=== PATIENT | male | born 1980 | race Caucasian/White ===

== ENCOUNTER 2020-12-13 09:39 | Emergency (ER) | payer OTHER ==
--- OUTSIDE RECORDS SUMMARY | 2020-12-13 09:42 | XMS REPORT | Continuity of Care Document ---
:1980 Author Organization [facility] t Address [address] [place] [address] Dr. Li [address] [place] [id number] Care Team Providers Name Role Phone Unavailable Unavailable Unavailable Problems This patient has no known problems. Allergies, Adverse Reactions, Alerts This patient has no known allergies or adverse reactions. Medications This patient has no known medications. Procedures This patient has no known procedures. Results This patient has no known results.
[2020-12-13] MEDS ORDERED: HYDROCODONE/APAP 7.5/325 MG TAB ONE (10:06)
--- NOTE | 2020-12-13 10:42 | RAD REPORT ---
EXAM DESCRIPTION: RAD - Hip Left 2 View - 12/13/2020 10:34 am CLINICAL HISTORY: PAIN COMPARISON: No comparisons FINDINGS: Subcapital fracture is seen of the proximal left femur with varus angulation. No dislocati on evident.
[2020-12-13] MEDS ORDERED: MORPHINE 4 MG/ML SYR ONE ×4 (11:06→17:37)
[2020-12-13] MEDS ORDERED: ONDANSETRON 4 MG/2 ML VIAL ONE ×2 (11:06→15:11)
[2020-12-13 11:07] LABS: Absolute Lymphocytes (CBC) 0.9 K/uL (0.7-4.9); Basophils % 0.5 % (0-1.3); Hematocrit 31.9 % (39.6-49.0); Lymphocytes % 8.6 % (15.3-44.8); MPV 9.2 fL (7.6-11.3); RBC Red Blood Cell Count 3.46 M/uL (4.33-5.43)
[2020-12-13 11:23] LABS: Protime INR 1.03
[2020-12-13 11:37] LABS: Thyroid Stimulating Hormone 99.1 uIU/mL (0.360-3.740)
--- NOTE | 2020-12-13 13:47 | RAD REPORT ---
EXAM DESCRIPTION: CT - Head Brain Wo Cont - 12/13/2020 1:24 pm CLINICAL HISTORY: fall, head injury, headache COMPARISON: Head Brain Wo Cont dated 05/27/2016 TECHNIQUE: Axial 5 mm thick images of the head were obtained without IV contrast. All CT scans are performed using dose optimization technique as appropriate and may include automated exposure control or mA/KV adjustment according to patient size. FINDINGS: No intracranial hemorrhage, mass, edema or shift of mid-line structures. No acute infarcti on changes seen. No abnormal extra-axial fluid collections. Ventricles are normal. Mastoid air cells and visualized portions of the paranasal sinuses are clear. No acute bony findings. Significant change from comparison. IMPRESSION: Negative non-contrast CT head examination for acute or significant finding.
[2020-12-13 14:27] LABS: Potassium 4.8 mmol/L (3.5-5.1)
[2020-12-13] MEDS ORDERED: NA CHLORIDE 0.9% 1,000 ML ONE (14:54)
--- NOTE | 2020-12-13 15:42 | EDPHYS ---
Physician Documentation [facility] Name: Mark Cash Age: 40 yrs Sex: Male : 1980 Arrival Date: 12/13/2020 Time: 09:40 Bed 2 Private MD: ED Physician Karthik Jack HPI: 12/13 09:48 This 40 yrs old Male presents to ER via EMS with complaints of Fall Injury. kb 09:48 Details of fall: The patient fell from an upright position, while walking. Onset: The kb symptoms/episode began/occurred last night. Associated injuries: The patient sustained left hip, decreased range of motion, painful injury. Severity of symptoms: At their worst the symptoms were moderate, in the emergency department the symptoms are unchanged. The patient has not experienced similar symptoms in the past. The patient has not recently seen a physician. Pt reports he tripped last night when walking to his car and landed on left hip. Reports he was able to make it into his car and home, then used a walker to get inside. Reports pain has progressively gotten worse.. Historical: - Allergies: 09:42 No Known Allergies; sv - PMHx: 09:42 Diabetes - IDDM; sv - PSHx: 09:42 dental sx; sv - Immunization history:: Adult Immunizations up to date. - Social history:: Smoking status: Patient denies any tobacco usage or history of. ROS: 09:46 Constitutional: Negative for fever, chills, and weight loss, Respiratory: Negative for kb shortness of breath, cough, wheezing, and pleuritic chest pain, Abdomen/GI: Negative for abdominal pain, nausea, vomiting, diarrhea, and constipation, Skin: Negative for injury, rash, and discoloration, Neuro: Negative for headache, weakness, numbness, tingling, and seizure. 09:46 MS/extremity: Positive for decreased range of motion, pain, tenderness, of the left hip. Exam: 09:46 Constitutional: This is a well developed, well nourished patient who is awake, alert, kb and in no acute distress. Head/Face: Normocephalic, atraumatic. Cardiovascular: Regular rate and rhythm with a normal S1 and S2. No gallops, murmurs, or rubs. No pulse deficits. Respiratory: Respirations even and unlabored. No increased work of breathing, no retractions or nasal flaring. Neuro: Awake and alert, GCS 15, oriented to person, place, time, and situation. Moves all extremities. Normal gait. 09:46 Musculoskeletal/extremity: Extremities: grossly normal except: noted in the left hip: decreased ROM, pain, tenderness, ROM: limited active range of motion due to pain, in the left hip, Circulation is intact in all extremities. Sensation intact. Weight bearing: is unable to bear weight. 09:46 Skin: injury, abrasion(s), very small abrasion noted, of the left zamarripa. Vital Signs: 09:41 BP 102 / 73; Pulse 89; Resp 16; Temp 98.1; Pulse Ox 98% ; sv 11:15 BP 138 / 97; Pulse 82; Resp 16; Pulse Ox 95% ; sv 12:00 BP 124 / 87; Pulse 82; Resp 16; Pulse Ox 96% ; sv 12:45 BP 119 / 85; Pulse 75; Resp 18; Pulse Ox 96% ; sv 13:30 BP 114 / 89; Pulse 80; Resp 18; Pulse Ox 98% ; sv 14:15 BP 112 / 82; Pulse 76; Resp 16; Pulse Ox 96% ; sv 15:00 BP 110 / 77; Pulse 79; Resp 16; Pulse Ox 98% ; sv 15:45 BP 110 / 76; Pulse 69; Resp 16; Pulse Ox 97% ; sv 17:00 BP 116 / 74; Pulse 66; Resp 15; Pulse Ox 97% on R/A; Pain 9/10; hb MDM: 09:43 Patient medically screened. kb 09:46 Data reviewed: vital signs, nurses notes. Data interpreted: Pulse oximetry: on room air kb is 98 %. Interpretation: normal. 10:49 Counseling: I had a detailed discussion with the patient and/or guardian regarding: the kb historical points, exam findings, and any diagnostic results supporting the discharge/admit diagnosis, radiology results, the need for further work-up and treatment in the hospital. Physician consultation: Reymundo Lopez MD was contacted at 10:49, regarding consult, patient's condition. 12:30 Physician consultation: Reymundo Lopez MD after a discussion of the case, a kb recommendation for transfer for higher level of care is made, in the emergency department to see patient at 12:15. 13:07 ED course: [facility] wants pt to have a CT of the head to make sure kb there isn't something else going on since pt reported balance issues. Pt reports he has had balance issues for years. Nothing new recently. 14:18 ED course: Awaiting [facility] callback. Beds available at [facility] location. 14:31 ED course: dr murrieta, ortho at [facility], accepts pt for consult. Wants admitted kb to hospitalist. 15:40 ED course: Dr Chacon, hospitalist at [facility], accepts pt for transfer. kb Awaiting bed assignment. 12/13 10:37 Order name: CBC with Diff 12/13 10:37 Order name: Basic Metabolic Panel 12/13 10:37 Order name: Protime (+inr) 12/13 10:37 Order name: Ptt, Activated; Complete Time: 11:28 kb 12/13 10:37 Order name: Type And Screen; Complete Time: 13:23 kb 12/13 10:37 Order name: CBC with Automated Diff; Complete Time: 11:17 EDAZ 12/13 10:37 Order name: Basic Metabolic Panel; Complete Time: 14:29 EDAZ 12/13 10:37 Order name: Protime (+INR); Complete Time: 11:28 EDAZ 12/13 10:42 Order name: COVID-19 : Document "Date of Symptom Onset" if Symptomatic. 12/13 10:43 Order name: TSH; Complete Time: 11:54 kb 12/13 11:38 Order name: T4 Free; Complete Time: 11:54 EDAZ 12/13 12:24 Order name: SARS-COV-2 RT PCR; Complete Time: 12:25 EDAZ 12/13 17:37 Order name: ABO/RH no charge EDAZ 12/13 09:44 Order name: Hip Left 2 View XRAY; Complete Time: 10:42 kb 12/13 10:37 Order name: IV Start; Complete Time: 10:59 kb 12/13 13:07 Order name: CT Head Brain wo Cont; Complete Time: 13:48 kb Administered Medications: 09:51 Drug: [place] (HYDROcodone-acetaminophen) (7.5 mg-325 mg) 1 tabs {Note: rass1.} Route: PO;sv 10:40 Follow up: Response: No adverse reaction hb 10:50 Drug: Zofran (Ondansetron) 4 mg Route: IVP; Site: right forearm; hb 11:30 Follow up: Response: No adverse reaction sv 10:58 Drug: morphine 4 mg Route: IVP; Site: right forearm; hb 11:30 Follow up: Response: No adverse reaction; Pain is decreased; RASS: Alert and Calm (0) sv 12:50 Drug: morphine 4 mg Route: IVP; Site: right forearm; sv 13:30 Follow up: Response: No adverse reaction; Pain is decreased; RASS: Alert and Calm (0) sv 14:43 Drug: NS 0.9% 1000 ml Route: IV; Rate: 1000 ml; Site: right forearm; ss 15:50 Follow up: Response: No adverse reaction; IV Status: Completed infusion; IV Intake: sv 1000ml 14:55 Drug: morphine 4 mg Route: IVP; Site: right forearm; hb 15:30 Follow up: Response: No adverse reaction; Pain is decreased; RASS: Alert and Calm (0) sv 14:55 Drug: Zofran (Ondansetron) 4 mg Route: IVP; Site: right forearm; hb 15:30 Follow up: Response: No adverse reaction sv 17:28 Drug: morphine 4 mg Route: IVP; Site: right forearm; hb 17:35 Follow up: Response: No adverse reaction; Medication administered at discharge.; RASS: sv Restless (+1) Disposition: 12/14 08:00 Co-signature as Attending Physician, Karthik Jack MD I agree with the assessment and kdr plan of care. Disposition: 12/13/20 15:42 Transfer ordered to Other Acute Care Facility. Diagnosis are Subcapital Fracture of left femur, Hypothyroidism, unspecified, Acute kidney failure. - Reason for transfer: Higher level of care. - Accepting physician is Dr Chacon. - Condition is Stable. - Problem is new. - Symptoms are unchanged. Signatures: Dispatcher [employer] EDAZ Ann Balbuena FNP-C FNP-Jasmin Nguyen RN Karthik Mathews MD MD kdr Smirch, Shelby, RN RN Milagro Sen RN RN Corrections: (The following items were deleted from the chart) 12/13 11:38 10:42 CORONAVIRUS ordered. EDAZ EDAZ 17:37 15:42 12/13/2020 15:42 Transfer ordered to Other Acute Care Facility. Diagnosis is hb Subcapital Fracture of left femur; Hypothyroidism, unspecified; Acute kidney failure. Reason for transfer: Higher level of care. Accepting physician is Dr Chacon. Condition is Stable. Problem is new. Symptoms are unchanged. kb
--- NOTE | 2020-12-13 15:42 | ER ---
Nurse's Notes [facility] Name: Mark Cash Age: 40 yrs Sex: Male : 1980 Arrival Date: 12/13/2020 Time: 09:40 Bed 2 Private MD: Diagnosis: Subcapital Fracture of left femur;Hypothyroidism, unspecified;Acute kidney failure Presentation: 12/13 09:41 Chief complaint: EMS states: reports falling yesterday and has been having left hip/leg sv pain since. Reports having balance issues for awhile which is causing him to fall. Pt is unable to bear weight. Coronavirus screen: Client denies travel out of the [place] in the last 14 days. At this time, the client does not indicate any symptoms associated with coronavirus-19. Ebola Screen: No symptoms or risks identified at this time. Initial Sepsis Screen: Does the patient meet any 2 criteria? No. Patient's initial sepsis screen is negative. Does the patient have a suspected source of infection? No. Patient's initial sepsis screen is negative. Risk Assessment: Do you want to hurt yourself or someone else? Patient reports no desire to harm self or others. Onset of symptoms was December 12, 2000. 09:41 Method Of Arrival: EMS: [facility] sv 09:41 Acuity: MAILE 3 sv Triage Assessment: 09:41 General: Appears in no apparent distress. uncomfortable, slender, well developed, sv Behavior is calm, cooperative, appropriate for age. Pain: Complains of pain in left leg and left hip Pain currently is 10 out of 10 on a pain scale. Neuro: Level of Consciousness is awake, alert, obeys commands, Oriented to person, place, time, situation. Respiratory: Airway is patent Respiratory effort is even, unlabored, Respiratory pattern is regular, symmetrical. Derm: Skin is pale. Historical: - Allergies: 09:42 No Known Allergies; sv - PMHx: 09:42 Diabetes - IDDM; sv - PSHx: 09:42 dental sx; sv - Immunization history:: Adult Immunizations up to date. - Social history:: Smoking status: Patient denies any tobacco usage or history of. Screenin:43 Abuse screen: Denies threats or abuse. Denies injuries from another. Nutritional sv screening: No deficits noted. Tuberculosis screening: No symptoms or risk factors identified. 11:01 Fall Risk None identified. hb Assessment: 09:45 General: Appears in no apparent distress. uncomfortable, Behavior is calm, cooperative. hb Pain: Pain currently is 10 out of 10 on a pain scale. Neuro: Level of Consciousness is awake, alert, obeys commands, Oriented to person, place, time, situation. Cardiovascular: Patient's skin is warm and dry. Respiratory: Respiratory effort is even, unlabored, Respiratory pattern is regular, symmetrical. GI: No signs and/or symptoms were reported involving the gastrointestinal system. : No signs and/or symptoms were reported regarding the genitourinary system. EENT: No signs and/or symptoms were reported regarding the EENT system. Derm: Skin is pink, warm \\T\\ dry. Musculoskeletal: Reports left hip pain. 10:50 Reassessment: Patient appears in no apparent distress at this time. No changes from sv previously documented assessment. Patient and/or family updated on plan of care and expected duration. Pain level reassessed. Patient is alert, oriented x 3, equal unlabored respirations, skin warm/dry/pink. 11:45 Reassessment: Patient appears in no apparent distress at this time. Patient and/or hb family updated on plan of care and expected duration. Pain level reassessed. Patient is alert, oriented x 3, equal unlabored respirations, skin warm/dry/pink. 13:45 Reassessment: Patient appears in no apparent distress at this time. Patient and/or hb family updated on plan of care and expected duration. Pain level reassessed. Patient is alert, oriented x 3, equal unlabored respirations, skin warm/dry/pink. 14:45 Reassessment: Patient appears in no apparent distress at this time. Patient and/or hb family updated on plan of care and expected duration. Pain level reassessed. Patient is alert, oriented x 3, equal unlabored respirations, skin warm/dry/pink. 15:45 Reassessment: Patient appears in no apparent distress at this time. Patient and/or hb family updated on plan of care and expected duration. Pain level reassessed. Patient is alert, oriented x 3, equal unlabored respirations, skin warm/dry/pink. 16:19 Reassessment: Patient appears in no apparent distress at this time. No changes from hb previously documented assessment. Patient and/or family updated on plan of care and expected duration. Pain level reassessed. Patient is alert, oriented x 3, equal unlabored respirations, skin warm/dry/pink. Awaiting transfer to higher level of care. 17:00 Reassessment: Patient appears in no apparent distress at this time. Patient and/or hb family updated on plan of care and expected duration. Pain level reassessed. Patient is alert, oriented x 3, equal unlabored respirations, skin warm/dry/pink. Vital Signs: 09:41 BP 102 / 73; Pulse 89; Resp 16; Temp 98.1; Pulse Ox 98% ; sv 11:15 BP 138 / 97; Pulse 82; Resp 16; Pulse Ox 95% ; sv 12:00 BP 124 / 87; Pulse 82; Resp 16; Pulse Ox 96% ; sv 12:45 BP 119 / 85; Pulse 75; Resp 18; Pulse Ox 96% ; sv 13:30 BP 114 / 89; Pulse 80; Resp 18; Pulse Ox 98% ; sv 14:15 BP 112 / 82; Pulse 76; Resp 16; Pulse Ox 96% ; sv 15:00 BP 110 / 77; Pulse 79; Resp 16; Pulse Ox 98% ; sv 15:45 BP 110 / 76; Pulse 69; Resp 16; Pulse Ox 97% ; sv 17:00 BP 116 / 74; Pulse 66; Resp 15; Pulse Ox 97% on R/A; Pain 9/10; hb ED Course: 09:40 Patient arrived in ED. sv 09:40 Jasmin Wakefield, RN is Primary Nurse. sv 09:42 Triage completed. sv 09:42 Nurse Practitioner and/or Physician Turning Machine Operator to see patient. sv 09:42 Arm band placed on. sv 09:43 [facility] Balbuena [facility]-C [facility]. kb 09:43 Karthik Jack MD is Attending Physician. kb 09:43 Patient has correct armband on for positive identification. Bed in low position. Call sv light in reach. Side rails up X2. Pulse ox on. NIBP on. Door closed. Head of bed elevated. 09:52 Awaiting for x-ray. sv 10:30 Hip Left 2 View XRAY In Process Unspecified. EDMS 10:35 Patient moved back from radiology. md1 10:50 Inserted saline lock: 20 gauge in right forearm, using aseptic technique. Blood hb collected. 11:04 COVID-19 : Document "Date of Symptom Onset" if Symptomatic. Sent. sv 11:04 Protime (+inr) Sent. sv 11:04 Basic Metabolic Panel Sent. sv 11:04 CBC with Diff Sent. sv 12:30 Transfer initiated with [facility]. em1 13:23 CT Head Brain wo Cont In Process Unspecified. EDMS 13:50 [facility] transfer center contacted to inform them of negative head CT. em1 17:36 No provider procedures requiring assistance completed. Patient transferred, IV remains hb in place. Administered Medications: 09:51 Drug: [place] (HYDROcodone-acetaminophen) (7.5 mg-325 mg) 1 tabs {Note: rass1.} Route: PO;sv 10:40 Follow up: Response: No adverse reaction hb 10:50 Drug: Zofran (Ondansetron) 4 mg Route: IVP; Site: right forearm; hb 11:30 Follow up: Response: No adverse reaction sv 10:58 Drug: morphine 4 mg Route: IVP; Site: right forearm; hb 11:30 Follow up: Response: No adverse reaction; Pain is decreased; RASS: Alert and Calm (0) sv 12:50 Drug: morphine 4 mg Route: IVP; Site: right forearm; sv 13:30 Follow up: Response: No adverse reaction; Pain is decreased; RASS: Alert and Calm (0) sv 14:43 Drug: NS 0.9% 1000 ml Route: IV; Rate: 1000 ml; Site: right forearm; ss 15:50 Follow up: Response: No adverse reaction; IV Status: Completed infusion; IV Intake: sv 1000ml 14:55 Drug: morphine 4 mg Route: IVP; Site: right forearm; hb 15:30 Follow up: Response: No adverse reaction; Pain is decreased; RASS: Alert and Calm (0) sv 14:55 Drug: Zofran (Ondansetron) 4 mg Route: IVP; Site: right forearm; hb 15:30 Follow up: Response: No adverse reaction sv 17:28 Drug: morphine 4 mg Route: IVP; Site: right forearm; hb 17:35 Follow up: Response: No adverse reaction; Medication administered at discharge.; RASS: sv Restless (+1) Intake: 15:50 IV: 1000ml; Total: 1000ml. sv Outcome: 15:42 ER care complete, transfer ordered by . kb 17:36 Transferred by ground EMS Note: [facility] hb 17:36 Condition: stable 17:36 Instructed on the need for transfer, Demonstrated understanding of instructions. 17:37 Patient left the ED. hb Signatures: Dispatcher [employer] EDMS Ann Balbuena, LOLIS BRAND-Jasmin Nguyen RN RN Gideon Hoover em1 Jessi Coats RN RN Milagro Sen RN RN Debi Pascual md1 Corrections: (The following items were deleted from the chart) 09:43 09:41 Pulse 89bpm; Resp 16bpm; Pulse Ox 98%; Temp 98.1F; sv sv 09:43 09:41 Acuity: MAILE 4 sv sv 10:17 09:41 Chief complaint: EMS states: reports falling yesterday and has been having left sv hip/leg pain since. Reports having balance issues for awhile which is causing him to fall. sv
[2020-12-13 17:56] VITALS: TEMP 98.1
[2020-12-13 18:06] VITALS: O2SAT 97
[2020-12-13 18:08] VITALS: BP 116/74
== END 2020-12-13 17:37 ==
LOC: ER 09:39
DX: S72.012A Unspecified intracapsular fracture of left femur, initial encounter for closed fracture (principal); E03.9 Hypothyroidism, unspecified; N17.9 Acute kidney failure, unspecified; W01.0XXA Fall on same level from slipping, tripping and stumbling without subsequent striking against object, initial encounter; Y93.01 Activity, walking, marching and hiking; Y92.89 Other specified places as the place of occurrence of the external cause; E11.9 Type 2 diabetes mellitus without complications; Z20.822 Contact with and (suspected) exposure to COVID-19
CPT/HCPCS: 96361; 85025; 80048; 36415; 86900; 86850; 85610; 86901; 85730; 84443; 84439; 70450; 73502; 96375; 96374; 99285; U0003; J7030; J2405 ×2

== ENCOUNTER 2021-08-27 15:26 | Emergency (ER) | payer OTHER ==
--- OUTSIDE RECORDS SUMMARY | 2021-08-27 15:29 | XMS REPORT | Continuity of Care Document ---
:1980 Author Organization [facility] t Address [address] [place] [address] Care Team Providers Name Role Phone FRANCISCO JAVIER REINA JR Primary Care Physician Unavailable ALMA Attending Clinician Unavailable SCOTT TROY Attending Clinician Unavailable ALMA Admitting Clinician Unavailable ARTURO SHARMA Admitting Clinician Unavailable Payers Payer Name Policy Type Policy Number Effective Date Expiration Date Shayne HERNANDEZ [id number] 2011 00:00:00 HMO/POS/OPEN ACCESS Problems This patient has no known problems. Allergies, Adverse Reactions, Alerts Allergy Allergy Status Severity Reaction(s) Onset Inactive Treating Comm ents Source Name Type Date Date Clinician NO KNOWN Allergy Active [facility] Medications This patient has no known medications. Vital Signs Vital Name Observation Time Observation Value Comments Source HEIGHT 2020-12-13 20:11:00 177.8 cm WEIGHT 2020-12-13 20:11:00 75.524 kg HEIGHT 2021-05-14 09:53:00 177.8 cm WEIGHT 2021-05-14 09:53:00 63.504 kg HEIGHT 2021-03-28 10:46:00 177.8 cm WEIGHT 2021-03-28 10:46:00 70.308 kg HEIGHT 2021-02-28 11:04:00 177.8 cm WEIGHT 2021-02-28 11:04:00 73.483 kg HEIGHT 2021-01-31 11:35:00 177.8 cm WEIGHT 2021-01-31 11:35:00 73.483 kg HEIGHT 2021-01-03 15:44:00 177.8 cm WEIGHT 2021-01-03 15:44:00 73.483 kg HEIGHT 2020-12-13 20:11:00 177.8 cm WEIGHT 2020-12-13 20:11:00 75.524 kg Procedures This patient has no known procedures. Encounters Start End Encounter Admission Attending Care Care Encounter Source Date/Time Date/Time Type Type Clinicians Facility Department ID 2020-12-13 Inpatient ER MARQUEZ, [facility] Orthopedics [id number] [facility] 18:43:00 FRANCISCO 2021-06-25 2021-06-[address] [facility] [id number] 00:00:00 00:00:[address] [facility] 2021-05-14 2021-05-[address] [facility] [id number] 00:00:00 00:00:[address] [facility] 2021-03-28 2021-03-[address] [facility] [id number] 00:00:00 00:00:[address] [facility] 2021-02-28 2021-02-[address] [facility] [id number] 00:00:00 00:00:[address] [facility] 2021-01-31 2021-01-[address] [facility] [id number] 00:00:00 00:00:[address] [facility] 2021-01-03 2021-01-[address] [facility] [id number] 00:00:00 00:00:[address] [facility] Results Test Description Test Time Test Comments Results Result Comments Source BASIC METABOLIC PANEL 2020-12-19 06:13:00 Test Item Value Reference Range Interpretation Comme nts SODIUM (BEAKER) (test code 133 meq/L 135-148 L = 381) POTASSIUM (BEAKER) (test 4.8 meq/L 3.6-5.5 code = 379) CHLORIDE (BEAKER) (test 99 meq/L 98-106 code = 382) CO2 (BEAKER) (test code = 22 meq/L 20-29 355) BLOOD UREA NITROGEN 27 mg/dL 10-26 H (BEAKER) (test code = 354) CREATININE (BEAKER) (test 2.54 mg/dL 0.50-1.20 H code = 358) GLUCOSE RANDOM (BEAKER) 187 mg/dL 70-110 H (test code = 652) CALCIUM (BEAKER) (test code 8.8 mg/dL 8.5-10.5 = 697) EGFR (BEAKER) (test code = 29 mL/min/1.73 sq m ESTIMATED GFR IS NOT 1092) ACCURATE CRE ATININE CLEARANCE IN [place] EDICTING GLOMERULAR FILT RATION RATE. ESTIMATED GFR IS NOT APPLICABLE FOR DIALYSIS PATIENTS. News Agent ID - [id number] ID - [id number] ID - qvei34Ggjbvycr ID - vgnm60Sdwvrshz ID - ecsi94Qqgnysfp ID - kets98Xpfmxiwv ID - ecac10Tqzzsuax ID - lzhg45Ynzmewbn ID - hoqx15Affvbbap ID - wczz72Dxzkwtng ID - zcrq32Ipokmmov ID - efhb12Cpdfbifn ID - vamf79YVI W/PLT COUNT & AUTO [id number] 05:56:00 Test Item Value Reference Range Interpretation Comments WHITE BLOOD CELL COUNT (BEAKER) 6.6 K/ L 4.0-10.0 (test code = 775) RED BLOOD CELL COUNT (BEAKER) 2.83 M/ L 4.20-5.80 L (test code = 761) HEMOGLOBIN (BEAKER) (test code = 8.7 GM/DL 13.0-16.8 L 410) HEMATOCRIT (BEAKER) (test code = 26.0 % 36.0-50.0 L 411) MEAN CORPUSCULAR VOLUME (BEAKER) 91.9 fL 82.0-99.0 (test code = 753) MEAN CORPUSCULAR HEMOGLOBIN 30.7 pg 27.0-33.0 (BEAKER) (test code = 751) MEAN CORPUSCULAR HEMOGLOBIN CONC 33.5 GM/DL 32.0-36.0 (BEAKER) (test code = 752) RED CELL DISTRIBUTION WIDTH 13.0 % 12.0-15.0 (BEAKER) (test code = 412) PLATELET COUNT (BEAKER) (test 187 K/CU MM 150-430 code = 756) MEAN PLATELET VOLUME (BEAKER) 10.1 fL 6.0-11.5 (test code = 754) NUCLEATED RED BLOOD CELLS 0 /100 WBC 0-0 (BEAKER) (test code = 413) NEUTROPHILS RELATIVE PERCENT 65 % (BEAKER) (test code = 429) LYMPHOCYTES RELATIVE PERCENT 26 % (BEAKER) (test code = 430) MONOCYTES RELATIVE PERCENT 6 % (BEAKER) (test code = 431) EOSINOPHILS RELATIVE PERCENT 2 % (BEAKER) (test code = 432) BASOPHILS RELATIVE PERCENT 1 % (BEAKER) (test code = 437) NEUTROPHILS ABSOLUTE COUNT 4.30 K/ L 1.80-8.00 (BEAKER) (test code = 670) LYMPHOCYTES ABSOLUTE COUNT 1.70 K/ L 1.48-4.50 (BEAKER) (test code = 414) MONOCYTES ABSOLUTE COUNT (BEAKER) 0.37 K/ L 0.00-1.30 (test code = 415) EOSINOPHILS ABSOLUTE COUNT 0.16 K/ L 0.00-0.50 (BEAKER) (test code = 416) BASOPHILS ABSOLUTE COUNT (BEAKER) 0.04 K/ L 0.00-0.20 (test code = 417) IMMATURE GRANULOCYTES-RELATIVE 1 % 0-0 H PERCENT (BEAKER) (test code = 2801) POCT-GLUCOSE [id number] 22:08:00 Test Item Value Reference Range Interpretation Comments POC-GLUCOSE METER 66 mg/dL 70-110 L : TESTED A T [facility] [address] (BEAKER) (test code = [address] [facility] [address], 15[address]) [facility] [address]: News Agent/Techni korina ID = [id number] for Wilianks patrick Hemal BASIC METABOLIC [id number] 05:49:00 Test Item Value Reference Range Interpretation Comments SODIUM (BEAKER) 134 meq/L 135-148 L (test code = 381) POTASSIUM (BEAKER) 4.5 meq/L 3.6-5.5 (test code = 379) CHLORIDE (BEAKER) 101 meq/L 98-106 (test code = 382) CO2 (BEAKER) (test 24 meq/L 20-29 code = 355) BLOOD UREA NITROGEN 22 mg/dL 10-26 (BEAKER) (test code = 354) CREATININE (BEAKER) 2.68 mg/dL 0.50-1.20 H (test code = 358) GLUCOSE RANDOM 337 mg/dL 70-110 H (BEAKER) (test code = 652) CALCIUM (BEAKER) 8.3 mg/dL 8.5-10.5 L (test code = 697) EGFR (BEAKER) (test 27 mL/min/1.73 ESTIMA ABHIJEET GFR IS code = 1092) sq m NOT ACCURATE CREATININE CLEARANCE IN PREDICTING GLOMERULAR FILTRATION RATE . ESTIMATED GFR I S NOT APPLICABLE FOR DIALYSIS PATIEN TS. News Agent ID - LITOOperator ID - LITOOperator ID - LITOOperator ID - LITOOperator ID - LITOOperator ID - LITOOperator ID - LITOOperator ID - LITOOperator ID - LITOOperator ID - LITOOperator ID - LITOOperator ID - LITOOperator ID - LITOCBC W/PLT COUNT & AUTO [id number] 05:34:00 Test Item Value Reference Range Interpretation Comments WHITE BLOOD CELL COUNT (BEAKER) 5.4 K/ L 4.0-10.0 (test code = 775) RED BLOOD CELL COUNT (BEAKER) 2.77 M/ L 4.20-5.80 L (test code = 761) HEMOGLOBIN (BEAKER) (test code = 8.5 GM/DL 13.0-16.8 L 410) HEMATOCRIT (BEAKER) (test code = 26.1 % 36.0-50.0 L 411) MEAN CORPUSCULAR VOLUME (BEAKER) 94.2 fL 82.0-99.0 (test code = 753) MEAN CORPUSCULAR HEMOGLOBIN 30.7 pg 27.0-33.0 (BEAKER) (test code = 751) MEAN CORPUSCULAR HEMOGLOBIN CONC 32.6 GM/DL 32.0-36.0 (BEAKER) (test code = 752) RED CELL DISTRIBUTION WIDTH 12.8 % 12.0-15.0 (BEAKER) (test code = 412) PLATELET COUNT (BEAKER) (test 167 K/CU MM 150-430 code = 756) MEAN PLATELET VOLUME (BEAKER) 10.9 fL 6.0-11.5 (test code = 754) NUCLEATED RED BLOOD CELLS 0 /100 WBC 0-0 (BEAKER) (test code = 413) NEUTROPHILS RELATIVE PERCENT 64 % (BEAKER) (test code = 429) LYMPHOCYTES RELATIVE PERCENT 25 % (BEAKER) (test code = 430) MONOCYTES RELATIVE PERCENT 8 % (BEAKER) (test code = 431) EOSINOPHILS RELATIVE PERCENT 2 % (BEAKER) (test code = 432) BASOPHILS RELATIVE PERCENT 1 % (BEAKER) (test code = 437) NEUTROPHILS ABSOLUTE COUNT 3.47 K/ L 1.80-8.00 (BEAKER) (test code = 670) LYMPHOCYTES ABSOLUTE COUNT 1.36 K/ L 1.48-4.50 L (BEAKER) (test code = 414) MONOCYTES ABSOLUTE COUNT (BEAKER) 0.43 K/ L 0.00-1.30 (test code = 415) EOSINOPHILS ABSOLUTE COUNT 0.12 K/ L 0.00-0.50 (BEAKER) (test code = 416) BASOPHILS ABSOLUTE COUNT (BEAKER) 0.03 K/ L 0.00-0.20 (test code = 417) IMMATURE GRANULOCYTES-RELATIVE 0 % 0-0 PERCENT (BEAKER) (test code = 2801) POCT-GLUCOSE [id number] 21:14:00 Test Item Value Reference Range Interpretation Comments POC-GLUCOSE METER 295 mg/dL 70-110 H : TESTED A T [facility] [address] (BEAKER) (test code [facility] [address], = 1538) [facility] [address]: News Agent/Techni korina ID = [id number] for estrella Huynh BASIC METABOLIC [id number] 04:37:00 Test Item Value Reference Range Interpretation Comments SODIUM (BEAKER) 132 meq/L 135-148 L (test code = 381) POTASSIUM (BEAKER) 4.7 meq/L 3.6-5.5 (test code = 379) CHLORIDE (BEAKER) 102 meq/L 98-106 (test code = 382) CO2 (BEAKER) (test 25 meq/L 20-29 code = 355) BLOOD UREA NITROGEN 27 mg/dL 10-26 H (BEAKER) (test code = 354) CREATININE (BEAKER) 2.58 mg/dL 0.50-1.20 H (test code = 358) GLUCOSE RANDOM 271 mg/dL 70-110 H (BEAKER) (test code = 652) CALCIUM (BEAKER) 7.8 mg/dL 8.5-10.5 L (test code = 697) EGFR (BEAKER) (test 28 mL/min/1.73 ESTIMA ABHIJEET GFR IS code = 1092) sq m NOT ACCURATE CREATININE CLEARANCE IN PREDICTING GLOMERULAR FILTRATION RATE . ESTIMATED GFR I S NOT APPLICABLE FOR DIALYSIS PATIEN TS. News Agent ID - MITCHOperator ID - MITCHOperator ID - MITCHOperator ID - MITCHOperator ID - MITCHOperator ID - MITCHOperator ID - MITCHOperator ID - MITCHOperator ID - MITCHOperator ID - MITCHOperator ID- MITCHOperator ID - MITCHOperator ID - MITCHCBC W/PLT COUNT & AUTO [id number] 04:24:00 Test Item Value Reference Range Interpretation Comments WHITE BLOOD CELL COUNT (BEAKER) 7.2 K/ L 4.0-10.0 (test code = 775) RED BLOOD CELL COUNT (BEAKER) 2.77 M/ L 4.20-5.80 L (test code = 761) HEMOGLOBIN (BEAKER) (test code = 8.4 GM/DL 13.0-16.8 L 410) HEMATOCRIT (BEAKER) (test code = 26.1 % 36.0-50.0 L 411) MEAN CORPUSCULAR VOLUME (BEAKER) 94.2 fL 82.0-99.0 (test code = 753) MEAN CORPUSCULAR HEMOGLOBIN 30.3 pg 27.0-33.0 (BEAKER) (test code = 751) MEAN CORPUSCULAR HEMOGLOBIN CONC 32.2 GM/DL 32.0-36.0 (BEAKER) (test code = 752) RED CELL DISTRIBUTION WIDTH 13.0 % 12.0-15.0 (BEAKER) (test code = 412) PLATELET COUNT (BEAKER) (test 148 K/CU MM 150-430 L code = 756) MEAN PLATELET VOLUME (BEAKER) 10.8 fL 6.0-11.5 (test code = 754) NUCLEATED RED BLOOD CELLS 0 /100 WBC 0-0 (BEAKER) (test code = 413) NEUTROPHILS RELATIVE PERCENT 76 % (BEAKER) (test code = 429) LYMPHOCYTES RELATIVE PERCENT 16 % (BEAKER) (test code = 430) MONOCYTES RELATIVE PERCENT 7 % (BEAKER) (test code = 431) EOSINOPHILS RELATIVE PERCENT 1 % (BEAKER) (test code = 432) BASOPHILS RELATIVE PERCENT 0 % (BEAKER) (test code = 437) NEUTROPHILS ABSOLUTE COUNT 5.41 K/ L 1.80-8.00 (BEAKER) (test code = 670) LYMPHOCYTES ABSOLUTE COUNT 1.11 K/ L 1.48-4.50 L (BEAKER) (test code = 414) MONOCYTES ABSOLUTE COUNT (BEAKER) 0.52 K/ L 0.00-1.30 (test code = 415) EOSINOPHILS ABSOLUTE COUNT 0.08 K/ L 0.00-0.50 (BEAKER) (test code = 416) BASOPHILS ABSOLUTE COUNT (BEAKER) 0.01 K/ L 0.00-0.20 (test code = 417) IMMATURE GRANULOCYTES-RELATIVE 0 % 0-0 PERCENT (BEAKER) (test code = 2801) BASIC METABOLIC [id number] 12:04:00 Test Item Value Reference Range Interpretation Comments SODIUM (BEAKER) 134 meq/L 135-148 L (test code = 381) POTASSIUM (BEAKER) 4.7 meq/L 3.6-5.5 (test code = 379) CHLORIDE (BEAKER) 103 meq/L 98-106 (test code = 382) CO2 (BEAKER) (test 22 meq/L 20-29 code = 355) BLOOD UREA NITROGEN 30 mg/dL 10-26 H (BEAKER) (test code = 354) CREATININE (BEAKER) 2.60 mg/dL 0.50-1.20 H (test code = 358) GLUCOSE RANDOM 118 mg/dL 70-110 H (BEAKER) (test code = 652) CALCIUM (BEAKER) 7.6 mg/dL 8.5-10.5 L (test code = 697) EGFR (BEAKER) (test 28 mL/min/1.73 ESTIMA ABHIJEET GFR IS code = 1092) sq m NOT ACCURATE CREATININE CLEARANCE IN PREDICTING GLOMERULAR FILTRATION RATE . ESTIMATED GFR I S NOT APPLICABLE FOR DIALYSIS PATIEN TS. News Agent ID - [id number] ID - [id number] ID - tpfj66Uqakbrew ID - cgnd37Zwjpidye ID - dcaj52Yjbmmmbt ID - tyww80Dgsjehtw ID - orcx44Lcjcmmxt ID - scou54Hwudhnxt ID - kynt94Rxhytnoo ID - ugws75Depophhf ID - ousg69Mvgesdls ID - lmte54Ykuwifdb ID - [id number] 11:41:00 Test Item Value Reference Range Interpretation Comments CORTISOL, TOTAL (BEAKER) (test code 9.6 ug/dL 3.7-19.4 = 2755) News Agent ID - [id number] 06:20:00 Test Item Value Reference Range Interpretation Comments FERRITIN (BEAKER) (test code = 143.50 ng/mL 22.00-322.00 361) News Agent ID - LITOIRON, TIBC, % SAT. (WITHOUT FERRITIN)2020-12-15 13:58:00 Test Item Value Reference Range Interpretation Comments IRON (BEAKER) (test code = 547) 27.0 ug/dL 45.0-170.0 L TOTAL IRON BINDING CAPACITY 179 ug/dL 250-550 L (BEAKER) (test code = 769) IRON % SATURATION (2) (BEAKER) 15 % 20-55 L (test code = 2590) News Agent ID - ctib75Frgegylk ID - [id number]-PJYXNIQ [id number] 07:43:00 Test Item Value Reference Range Interpretation Comments POC-GLUCOSE METER 135 mg/dL 70-110 H : Notified RN/MD: TESTED (BEAKER) (test code AT [address] = 1538) [facility] [address]: News Agent/Techni korina ID = [id number] for [place] BASIC METABOLIC [id number] 05:20:00 Test Item Value Reference Range Interpretation Comments SODIUM (BEAKER) 132 meq/L 135-148 L (test code = 381) POTASSIUM (BEAKER) 5.1 meq/L 3.6-5.5 (test code = 379) CHLORIDE (BEAKER) 103 meq/L 98-106 (test code = 382) CO2 (BEAKER) (test 17 meq/L 20-29 L code = 355) BLOOD UREA NITROGEN 24 mg/dL 10-26 (BEAKER) (test code = 354) CREATININE (BEAKER) 2.77 mg/dL 0.50-1.20 H (test code = 358) GLUCOSE RANDOM 173 mg/dL 70-110 H (BEAKER) (test code = 652) CALCIUM (BEAKER) 8.1 mg/dL 8.5-10.5 L (test code = 697) EGFR (BEAKER) (test 26 mL/min/1.73 ESTIMA ABHIJEET GFR IS code = 1092) sq m NOT ACCURATE CREATININE CLEARANCE IN PREDICTING GLOMERULAR FILTRATION RATE . ESTIMATED GFR I S NOT APPLICABLE FOR DIALYSIS PATIEN TS. News Agent ID - [id number] ID - [id number] ID - [id number] ID - [id number] ID - QNIGD342Tqucpcdo ID - KJYVG569Zcljosky ID - VZZIZ721Hjvhkuwr ID - QRCQF413Cidupvtk ID - NRWNO435Iuknhjlj ID - [id number] HEPATIC FUNCTION [id number] 05:19:00 Test Item Value Reference Range Interpretation Comments TOTAL PROTEIN (BEAKER) (test code = 6.6 gm/dL 6.0-8.5 770) ALBUMIN (BEAKER) (test code = 1145) 3.5 g/dL 3.5-5.0 BILIRUBIN TOTAL (BEAKER) (test code 0.3 mg/dL 0.1-1.2 = 377) BILIRUBIN DIRECT (BEAKER) (test 0.2 mg/dL 0.0-0.4 code = 706) ALKALINE PHOSPHATASE (BEAKER) (test 76 U/L 30-115 code = 346) AST (SGOT) (BEAKER) (test code = 24 U/L 5-40 353) ALT (SGPT) (BEAKER) (test code = 15 U/L 5-50 347) News Agent ID - [id number] ID - [id number] ID - [id number] ID - MOSIF353Yjiohjrn ID - [id number] ID - NHBDF078Efsygjbk ID - QFZGL353Vvnpejti ID - LBNPU032Vaxqihho ID - EQOSY087Czzbckfo ID - [id number] W/PLT COUNT & AUTO [id number] 05:15:00 Test Item Value Reference Range Interpretation Comments WHITE BLOOD CELL COUNT (BEAKER) 10.9 K/ L 4.0-10.0 H (test code = 775) RED BLOOD CELL COUNT (BEAKER) 3.33 M/ L 4.20-5.80 L (test code = 761) HEMOGLOBIN (BEAKER) (test code = 10.0 GM/DL 13.0-16.8 L 410) HEMATOCRIT (BEAKER) (test code = 31.8 % 36.0-50.0 L 411) MEAN CORPUSCULAR VOLUME (BEAKER) 95.5 fL 82.0-99.0 (test code = 753) MEAN CORPUSCULAR HEMOGLOBIN 30.0 pg 27.0-33.0 (BEAKER) (test code = 751) MEAN CORPUSCULAR HEMOGLOBIN CONC 31.4 GM/DL 32.0-36.0 L (BEAKER) (test code = 752) RED CELL DISTRIBUTION WIDTH 12.9 % 12.0-15.0 (BEAKER) (test code = 412) PLATELET COUNT (BEAKER) (test 177 K/CU MM 150-430 code = 756) MEAN PLATELET VOLUME (BEAKER) 10.7 fL 6.0-11.5 (test code = 754) NUCLEATED RED BLOOD CELLS 0 /100 WBC 0-0 (BEAKER) (test code = 413) NEUTROPHILS RELATIVE PERCENT 84 % (BEAKER) (test code = 429) LYMPHOCYTES RELATIVE PERCENT 11 % (BEAKER) (test code = 430) MONOCYTES RELATIVE PERCENT 5 % (BEAKER) (test code = 431) EOSINOPHILS RELATIVE PERCENT 0 % (BEAKER) (test code = 432) BASOPHILS RELATIVE PERCENT 0 % (BEAKER) (test code = 437) NEUTROPHILS ABSOLUTE COUNT 9.13 K/ L 1.80-8.00 H (BEAKER) (test code = 670) LYMPHOCYTES ABSOLUTE COUNT 1.16 K/ L 1.48-4.50 L (BEAKER) (test code = 414) MONOCYTES ABSOLUTE COUNT (BEAKER) 0.53 K/ L 0.00-1.30 (test code = 415) EOSINOPHILS ABSOLUTE COUNT 0.00 K/ L 0.00-0.50 (BEAKER) (test code = 416) BASOPHILS ABSOLUTE COUNT (BEAKER) 0.01 K/ L 0.00-0.20 (test code = 417) IMMATURE GRANULOCYTES-RELATIVE 0 % 0-0 PERCENT (BEAKER) (test code = 2801) POCT-GLUCOSE [id number] 18:09:00 Test Item Value Reference Range Interpretation Comments POC-GLUCOSE METER 122 mg/dL 70-110 H : TESTED A T [address] (BEAKER) (test code [address], = 1538) [place] [id number]: News Agent/Techni korina ID = [id number] for Aneta is, Lalithaia POCT-GLUCOSE [id number] 17:53:00 Test Item Value Reference Range Interpretation Comments POC-GLUCOSE METER 51 mg/dL 70-110 L : TESTED A T [address] (BEAKER) (test code = [address], [address]) [place] [address]: News Agent/Techni korina ID = [id number] for Loll is, [place] FL, FLUORO, NON-SPECIFIC, UP TO 1 [id number] 16:30:00Reason for exam:->[facility] : 1980 Sex: MFluoroscopic unit utilized for a procedure performed in the OR. No interpretation was requested. Refer to the operative report for findings. Refer to PACS for patient radiation dose information.POCT-GLUCOSE [id number] 15:21:00 Test Item Value Reference Range Interpretation Comments POC-GLUCOSE METER 105 mg/dL 70-110 : TESTED A T [address] (BEAKER) (test code [address], = 1538) [place] [address]: News Agent/Techni korina ID = [id number] for Carlos Chopra POCT-GLUCOSE [id number] 14:30:00 Test Item Value Reference Range Interpretation Comments POC-GLUCOSE METER 51 mg/dL 70-110 L : TESTED A T [address] (BEAKER) (test code = [address], [address]) [place] [address]: News Agent/Techni korina ID = [id number] for Dot Graves OSMOLALITY, [id number] 11:59:00 Test Item Value Reference Range Interpretation Comments OSMOLALITY, SERUM (BEAKER) (test 294 mOsm/kg 275-295 code = 615) VITAMIN D, [id number] 11:48:00 Test Item Value Reference Range Interpretation Comments VITAMIN D 25-OH (BEAKER) (test code = < ng/mL 6.6-49.9 L 2764) Effective 05/27/2017: Reference Range ChangeNew: 6.6-49.9 ng/mL Previous: 13.0-47.8 ng/mLRecommended Vitamin D Target Range: 30.0-40.0 ng/mLOperator ID - KARON COSMOLALITY, [id number] 11:36:00 Test Item Value Reference Range Interpretation Comments OSMOLALITY URINE 566 mOsm/kg See_Comment [Automated message] (BEAKER) (test code = The sy stem which 614) generated this result transmitted ref erence range: 50-1,200 mOsm/kg. The reference range was not used to int erpret this result as normal/abnormal . HEPATITIS B SURFACE [id number] 11:32:00 Test Item Value Reference Range Interpretation Comments HEPATITIS B SURFACE ANTIBODY 61.9 mIU/mL <8.0 H (BEAKER) (test code = 647) News Agent ID - KARON CHEPATITIS C [id number] 11:32:00 Test Item Value Reference Range Interpretation Comments HEPATITIS C ANTIBODY (BEAKER) Nonreactive Nonreactive (test code = 367) News Agent ID - KARON CHEPATITIS A ANTIBODY, [id number] 11:32:00 Test Item Value Reference Range Interpretation Comments HEPATITIS A IGM ANTIBODY (BEAKER) Nonreactive Nonreactive (test code = 498) News Agent ID - KARON CHEPATITIS B CORE ANTIBODY, [id number] 11:32:00 Test Item Value Reference Range Interpretation Comments HEPATITIS B CORE TOTAL ANTIBODY Nonreactive Nonreactive (BEAKER) (test code = 497) News Agent ID - KARON CPTH, [id number] 06:09:00 Test Item Value Reference Range Interpretation Comments PARATHYROID HORMONE INTACT 126.0 pg/mL 15.0-90.0 H (BEAKER) (test code = 577) News Agent ID - LITOHEPATIC FUNCTION [id number] 05:36:00 Test Item Value Reference Range Interpretation Comments TOTAL PROTEIN (BEAKER) (test code = 6.5 gm/dL 6.0-8.5 770) ALBUMIN (BEAKER) (test code = 1145) 3.6 g/dL 3.5-5.0 BILIRUBIN TOTAL (BEAKER) (test code 0.5 mg/dL 0.1-1.2 = 377) BILIRUBIN DIRECT (BEAKER) (test 0.2 mg/dL 0.0-0.4 code = 706) ALKALINE PHOSPHATASE (BEAKER) (test 79 U/L 30-115 code = 346) AST (SGOT) (BEAKER) (test code = 21 U/L 5-40 353) ALT (SGPT) (BEAKER) (test code = 15 U/L 5-50 347) News Agent ID - LITOOperator ID - LITOOperator ID - LITOOperator ID - LITOOperator ID - LITOOperator ID - LITOOperator ID - LITOOperator ID - LITOOperator ID - LITOOperator ID - LITOBASIC METABOLIC [id number] 05:35:00 Test Item Value Reference Range Interpretation Comments SODIUM (BEAKER) 131 meq/L 135-148 L (test code = 381) POTASSIUM (BEAKER) 4.9 meq/L 3.6-5.5 (test code = 379) CHLORIDE (BEAKER) 99 meq/L 98-106 (test code = 382) CO2 (BEAKER) (test 24 meq/L 20-29 code = 355) BLOOD UREA NITROGEN 27 mg/dL 10-26 H (BEAKER) (test code = 354) CREATININE (BEAKER) 2.82 mg/dL 0.50-1.20 H (test code = 358) GLUCOSE RANDOM 98 mg/dL 70-110 (BEAKER) (test code = 652) CALCIUM (BEAKER) 8.3 mg/dL 8.5-10.5 L (test code = 697) EGFR (BEAKER) (test 25 mL/min/1.73 ESTIMA ABHIJEET GFR IS code = 1092) sq m NOT ACCURATE CREATININE CLEARANCE IN PREDICTING GLOMERULAR FILTRATION RATE . ESTIMATED GFR I S NOT APPLICABLE FOR DIALYSIS PATIEN TS. News Agent ID - LITOOperator ID - LITOOperator ID - LITOOperator ID - LITOOperator ID - LITOOperator ID - LITOOperator ID - LITOOperator ID - LITOOperator ID - LITOOperator ID - LITOCBC W/PLT COUNT & AUTO [id number] 05:25:00 Test Item Value Reference Range Interpretation Comments WHITE BLOOD CELL COUNT (BEAKER) 6.1 K/ L 4.0-10.0 (test code = 775) RED BLOOD CELL COUNT (BEAKER) 3.27 M/ L 4.20-5.80 L (test code = 761) HEMOGLOBIN (BEAKER) (test code = 10.0 GM/DL 13.0-16.8 L 410) HEMATOCRIT (BEAKER) (test code = 30.5 % 36.0-50.0 L 411) MEAN CORPUSCULAR VOLUME (BEAKER) 93.3 fL 82.0-99.0 (test code = 753) MEAN CORPUSCULAR HEMOGLOBIN 30.6 pg 27.0-33.0 (BEAKER) (test code = 751) MEAN CORPUSCULAR HEMOGLOBIN CONC 32.8 GM/DL 32.0-36.0 (BEAKER) (test code = 752) RED CELL DISTRIBUTION WIDTH 13.2 % 12.0-15.0 (BEAKER) (test code = 412) PLATELET COUNT (BEAKER) (test 152 K/CU MM 150-430 code = 756) MEAN PLATELET VOLUME (BEAKER) 10.7 fL 6.0-11.5 (test code = 754) NUCLEATED RED BLOOD CELLS 0 /100 WBC 0-0 (BEAKER) (test code = 413) NEUTROPHILS RELATIVE PERCENT 60 % (BEAKER) (test code = 429) LYMPHOCYTES RELATIVE PERCENT 29 % (BEAKER) (test code = 430) MONOCYTES RELATIVE PERCENT 8 % (BEAKER) (test code = 431) EOSINOPHILS RELATIVE PERCENT 2 % (BEAKER) (test code = 432) BASOPHILS RELATIVE PERCENT 1 % (BEAKER) (test code = 437) NEUTROPHILS ABSOLUTE COUNT 3.68 K/ L 1.80-8.00 (BEAKER) (test code = 670) LYMPHOCYTES ABSOLUTE COUNT 1.77 K/ L 1.48-4.50 (BEAKER) (test code = 414) MONOCYTES ABSOLUTE COUNT (BEAKER) 0.47 K/ L 0.00-1.30 (test code = 415) EOSINOPHILS ABSOLUTE COUNT 0.15 K/ L 0.00-0.50 (BEAKER) (test code = 416) BASOPHILS ABSOLUTE COUNT (BEAKER) 0.04 K/ L 0.00-0.20 (test code = 417) IMMATURE GRANULOCYTES-RELATIVE 0 % 0-0 PERCENT (BEAKER) (test code = 2801) U/S, RENAL, [id number] 00:00:00Reason for exam:->Elevated CreatinineShould this be performed at the bedside?->Yes [facility] : 1980 Sex: MFINAL REPORT Ultrasound of the Kidneys Clinical History: Elevated Creatinine Comparison: None. Discussion: Sonographic evaluation of the kidneys was performed. Right kidney: 11.4 x 5.2 x 5.3 cm, with cortical thickness of 1.4 cm. Normal cortical echogenicity. No mass.No shadowing calculus. No hydronephrosis. Left kidney: 11.1 x 5.3 x 5.4 cm, with cortical thickness of 1.3 cm. Normal cortical echogenicity. No mass. No shadowing calculus. No hydronephrosis. Limited doppler evaluation of bilateral main renal arteries and veins demonstrate patency. Bladder: Distended and thin-walled with a prevoid volume of 652 cc. Post void volume 491 cc. Impression: No hydronephrosis.Large urinary bladder postvoid residual. Signed: Rl Augustine [facility] Verified Date/Time:12/14/2020 00:00:32 PROTEIN, RANDOM [id number] 23:09:00 Test Item Value Reference Range Interpretation Comments PROTEIN, URINE (BEAKER) (test code = 16 mg/dL 0-14 H 1569) News Agent ID - JUSTINCREATININE, RANDOM [id number] 23:09:00 Test Item Value Reference Range Interpretation Comments CREATININE URINE (BEAKER) (test 103.7 mg/dL code = 375) Reference Range: No NormalsOperator ID - JUSTINCHLORIDE, RANDOM [id number] 22:56:00 Test Item Value Reference Range Interpretation Comments CHLORIDE URINE (BEAKER) (test code = 58 meq/L 682) Reference Range: No NormalsOperator ID - JUSTINPOTASSIUM, RANDOM [id number] 22:56:00 Test Item Value Reference Range Interpretation Comments POTASSIUM URINE (BEAKER) (test 35.0 meq/L code = 195) Reference Range: No NormalsOperator ID - JUSTINSODIUM, RANDOM [id number] 22:56:00 Test Item Value Reference Range Interpretation Comments SODIUM URINE (BEAKER) (test code = 96 meq/L 243) Reference Range: No NormalsOperator ID - JUSTINURINALYSIS WITH MICROSCOPIC IF [id number] 22:44:00 Test Item Value Reference Range Interpretation Comments COLOR (BEAKER) (test code = 470) Yellow CLARITY (BEAKER) (test code = Clear 469) SPECIFIC GRAVITY UA (BEAKER) 1.020 1.001-1.035 (test code = 468) PH UA (BEAKER) (test code = 467) 6.5 5.0-8.0 PROTEIN UA (BEAKER) (test code = Negative Negative 464) GLUCOSE UA (BEAKER) (test code = >=1000 mg/dL Negative A 365) KETONES UA (BEAKER) (test code = Negative Negative 371) BILIRUBIN UA (BEAKER) (test code Negative Negative = 462) BLOOD UA (BEAKER) (test code = Negative Negative 461) NITRITE UA (BEAKER) (test code = Negative Negative 465) LEUKOCYTE ESTERASE UA (BEAKER) Negative Negative (test code = 466) UROBILINOGEN UA (BEAKER) (test 0.2 mg/dL 0.2-1.0 code = 463) SOURCE(BEAKER) (test code = 2795) T4, [id number] 22:42:00 Test Item Value Reference Range Interpretation Comments FREE T4 (BEAKER) (test code = 655) < ng/dL 0.90-1.80 L News Agent ID - [id number] B SURFACE [id number] 22:11:00 Test Item Value Reference Range Interpretation Comments HEPATITIS B SURFACE ANTIGEN (2) Nonreactive Nonreactive (BEAKER) (test code = 2585) News Agent ID - [id number] ANTIGEN WITH HIV-1/2 [id number] 22:11:00 Test Item Value Reference Range Interpretation Comments HIV-1 ANTIGEN WITH HIV 1\T\2 Nonreactive Nonreactive ANTIBODY (2) (BEAKER) (test code = 2586) News Agent ID - [id number]/FREE T4 IF [id number] 22:10:00 Test Item Value Reference Range Interpretation Comments THYROID STIMULATING HORMONE 81.020 uIU/mL 0.350-5.500 H (BEAKER) (test code = 772) News Agent ID - [id number] METABOLIC [id number] 21:34:00 Test Item Value Reference Range Interpretation Comments SODIUM (BEAKER) 134 meq/L 135-148 L (test code = 381) POTASSIUM (BEAKER) 5.1 meq/L 3.6-5.5 (test code = 379) CHLORIDE (BEAKER) 100 meq/L 98-106 (test code = 382) CO2 (BEAKER) (test 30 meq/L 20-29 H code = 355) BLOOD UREA NITROGEN 31 mg/dL 10-26 H (BEAKER) (test code = 354) CREATININE (BEAKER) 2.97 mg/dL 0.50-1.20 H (test code = 358) GLUCOSE RANDOM 211 mg/dL 70-110 H (BEAKER) (test code = 652) CALCIUM (BEAKER) 8.1 mg/dL 8.5-10.5 L (test code = 697) EGFR (BEAKER) (test 24 mL/min/1.73 ESTIMA ABHIJEET GFR IS code = 1092) sq m NOT ACCURATE CREATININE CLEARANCE IN PREDICTING GLOMERULAR FILTRATION RATE . ESTIMATED GFR I S NOT APPLICABLE FOR DIALYSIS PATIEN TS. News Agent ID - JUSTINOroelator ID - JUSTINOperator ID - JUSTINOperator ID - JUSTINOperator ID - JUSTINOperator ID - JUSTINOperator ID - JUSTINOperator ID - JUSTINOperator ID - JUSTINOperator ID - JUSTINHEPATIC FUNCTION [id number] 21:34:00 Test Item Value Reference Range Interpretation Comments TOTAL PROTEIN (BEAKER) (test code = 7.0 gm/dL 6.0-8.5 770) ALBUMIN (BEAKER) (test code = 1145) 3.9 g/dL 3.5-5.0 BILIRUBIN TOTAL (BEAKER) (test code 0.5 mg/dL 0.1-1.2 = 377) BILIRUBIN DIRECT (BEAKER) (test 0.2 mg/dL 0.0-0.4 code = 706) ALKALINE PHOSPHATASE (BEAKER) (test 84 U/L 30-115 code = 346) AST (SGOT) (BEAKER) (test code = 24 U/L 5-40 353) ALT (SGPT) (BEAKER) (test code = 18 U/L 5-50 347) News Agent ID - JUSTINOperator ID - JUSTINOperator ID - JUSTINOperator ID - JUSTINOperator ID - JUSTINOperator ID - JUSTINOperator ID - JUSTINMAGNESIUM 2020-12-13 21:34:00 Test Item Value Reference Range Interpretation Comments MAGNESIUM (BEAKER) (test code = 2.0 mg/dL 1.5-3.0 627) News Agent ID - JUSTINOperator ID - JUSTINOperator ID - JUSTINOperator ID - RUTH HEMOGLOBIN [id number] 21:34:00 Test Item Value Reference Range Interpretation Comments HEMOGLOBIN A1C (BEAKER) (test code = 10.0 % 4.3-6.1 H 368) [id number] 21:31:00 Test Item Value Reference Range Interpretation Comments PHOSPHORUS (BEAKER) (test code = 3.5 mg/dL 2.5-4.5 604) News Agent ID - JUSTINPROTHROMBIN [id number] 21:00:00 Test Item Value Reference Range Interpretation Comments PROTIME (BEAKER) 10.9 seconds 9.3-12.0 Final Infor mation (test code = 759) (Auto Outp ut) INR (BEAKER) (test 0.98 See_Comment Final Inf ormation code = 370) (Auto Output) [Automated mess age] The system [employer] generated this result transmitted ref erence range: <=5.90. The reference range was not used to int erpret this result as normal/abnormal . RECOMMENDED COUMADIN/WARFARIN INR THERAPY RANGESSTANDARD DOSE: 2.0 - 3.0 Includes: PROPHYLAXIS forvenous thrombosis, systemic embolization; TREATMENT for venous thrombosis and/or pulmonary embolus.HIGH RISK: Target INR is 2.5-3.5 for patients with mechanical heart valves.CBC W/PLT COUNT & AUTO DIFFERENTIAL 2020-12-13 20:15:00 Test Item Value Reference Range Interpretation Comments WHITE BLOOD CELL COUNT (BEAKER) 9.6 K/ L 4.0-10.0 (test code = 775) RED BLOOD CELL COUNT (BEAKER) 3.46 M/ L 4.20-5.80 L (test code = 761) HEMOGLOBIN (BEAKER) (test code = 10.5 GM/DL 13.0-16.8 L 410) HEMATOCRIT (BEAKER) (test code = 32.6 % 36.0-50.0 L 411) MEAN CORPUSCULAR VOLUME (BEAKER) 94.2 fL 82.0-99.0 (test code = 753) MEAN CORPUSCULAR HEMOGLOBIN 30.3 pg 27.0-33.0 (BEAKER) (test code = 751) MEAN CORPUSCULAR HEMOGLOBIN CONC 32.2 GM/DL 32.0-36.0 (BEAKER) (test code = 752) RED CELL DISTRIBUTION WIDTH 13.2 % 12.0-15.0 (BEAKER) (test code = 412) PLATELET COUNT (BEAKER) (test 173 K/CU MM 150-430 code = 756) MEAN PLATELET VOLUME (BEAKER) 10.8 fL 6.0-11.5 (test code = 754) NUCLEATED RED BLOOD CELLS 0 /100 WBC 0-0 (BEAKER) (test code = 413) NEUTROPHILS RELATIVE PERCENT 77 % (BEAKER) (test code = 429) LYMPHOCYTES RELATIVE PERCENT 16 % (BEAKER) (test code = 430) MONOCYTES RELATIVE PERCENT 6 % (BEAKER) (test code = 431) EOSINOPHILS RELATIVE PERCENT 1 % (BEAKER) (test code = 432) BASOPHILS RELATIVE PERCENT 0 % (BEAKER) (test code = 437) NEUTROPHILS ABSOLUTE COUNT 7.38 K/ L 1.80-8.00 (BEAKER) (test code = 670) LYMPHOCYTES ABSOLUTE COUNT 1.54 K/ L 1.48-4.50 (BEAKER) (test code = 414) MONOCYTES ABSOLUTE COUNT (BEAKER) 0.56 K/ L 0.00-1.30 (test code = 415) EOSINOPHILS ABSOLUTE COUNT 0.10 K/ L 0.00-0.50 (BEAKER) (test code = 416) BASOPHILS ABSOLUTE COUNT (BEAKER) 0.02 K/ L 0.00-0.20 (test code = 417) IMMATURE GRANULOCYTES-RELATIVE 0 % 0-0 PERCENT (BEAKER) (test code = 2801)
[2021-08-27] MEDS ORDERED: NA CHLORIDE 0.9% 1,000 ML ONE ×2 (15:53→17:18)
[2021-08-27 16:02] LABS: Urine Blood Trace-lysed (Negative); Urine Glucose Trace (Negative); Urine Protein Negative (Negative)
[2021-08-27 16:03] LABS: Absolute Lymphocytes (CBC) 0.6 K/uL (0.7-4.9); Hematocrit 37.3 % (39.6-49.0); Lymphocytes % 6.9 % (15.3-44.8); MPV 7.9 fL (7.6-11.3); RBC Red Blood Cell Count 4.07 M/uL (4.33-5.43)
[2021-08-27 16:20] LABS: Barbiturates NEGATIVE (NEGATIVE); Benzodiazepines NEGATIVE (NEGATIVE); Cocaine NEGATIVE (NEGATIVE); METHAMPHETAM NEGATIVE (NEGATIVE); Methadone NEGATIVE (NEGATIVE); Opiates NEGATIVE (NEGATIVE); Phencyclidine NEGATIVE (NEGATIVE); THC Cannibis NEGATIVE (NEGATIVE)
[2021-08-27 16:21] LABS: Urine Bacteria NONE SEEN /HPF (NONE SEEN); Urine RBC <5 /HPF (NONE SEEN)
[2021-08-27 16:27] LABS: ALT/SGPT 16 U/L (12-78); AST/SGOT 15 U/L (15-37); Albumin 3.2 g/dL (3.4-5.0); Alkaline Phosphatase 96 U/L (45-117); BUN Blood Urea Nitrogen 18 mg/dL (7-18); Bicarbonate 24 mmol/L (21-32); Bilirubin Direct < 0.1 mg/dL (0-0.2); Bilirubin Total 0.1 mg/dL (0.2-1.0); Glucose Level 182 mg/dL (74-106); Potassium 4.2 mmol/L (3.5-5.1); Protein, Total 7.2 g/dL (6.4-8.2); Sodium Level 140 mmol/L (136-145)
--- NOTE | 2021-08-27 16:27 | RAD REPORT ---
EXAM DESCRIPTION: CT - Head Brain Wo Cont - 08/27/2021 4:14 pm CLINICAL HISTORY: MENTAL STATUS CHANGE COMPARISON: Head Brain Wo Cont dated 12/13/2020 TECHNIQUE: Axial 5 mm thick images of the head were obtained without IV contrast. All CT scans are performed using dose optimization technique as appropriate and may include automated exposure control or mA/KV adjustment according to patient size. FINDINGS: No intracranial hemorrhage, mass, edema or shift of mid-line structures. No acute infarcti on changes seen. No abnormal extra-axial fluid collections. Ventricles are normal. Mastoid air cells and visualized portions of the paranasal sinuses are clear. No acute bony findings. IMPRESSION: Negative non-contrast CT head examination for acute or significant finding. No significant change from the November 2020 study.
--- NOTE | 2021-08-27 16:47 | RAD REPORT ---
EXAM DESCRIPTION: RAD - Chest Single View - 08/27/2021 4:23 pm CLINICAL HISTORY: unresponsive COMPARISON: December 2018 TECHNIQUE: AP portable chest image was obtained 08/27/2021 4:23 pm . FINDINGS: Lungs are clear. Minimal linear atelectasis each lower lung field. Heart and vasculature a re normal. No measurable pleural effusion and no pneumothorax. No acute bony abnormality seen. No acu te aortic findings suspected. IMPRESSION: No acute cardiopulmonary process.
[2021-08-27 16:48] LABS: Platelet Estimate ADEQ; White Blood Cell Scan OK (OK)
[2021-08-27 16:49] LABS: Blood Morphology Comment NOT SEEN (NOT SEEN)
[2021-08-27 17:41] LABS: T3 Free 1.88 pg/mL (2.18-3.98)
[2021-08-27 17:42] LABS: Thyroid Stimulating Hormone 7.3 uIU/mL (0.360-3.740)
[2021-08-27 20:00] LABS: Potassium 4.2 mmol/L (3.5-5.1)
--- NOTE | 2021-08-27 21:11 | EDPHYS ---
Physician Documentation [facility] Name: Mark Cash Age: 41 yrs Sex: Male : 1980 Arrival Date: 08/27/2021 Time: 15:28 Bed 5 Private MD: ED Physician Juan A Esteves HPI: 08/27 15:50 This 41 yrs old Male presents to ER via EMS with complaints of Unresponsive, cp Hypoglycemia. 15:50 The patient presents with decreased responsiveness. cp 15:50 Onset: The symptoms/episode began/occurred today. Possible causes: low blood sugar, the cp patient uses insulin, patient reports last meal was previous evening and that he administered prescribed insulin today. Associated signs and symptoms: Pertinent positives: nausea, weakness, Pertinent negatives: abdominal pain, chest pain, combativeness. Current symptoms: In the emergency department the patient's symptoms have improved, moderately, is more alert. Patient's baseline: Neuro: alert and fully oriented, Motor: no deficits, Ambulation: walks without assistance, Speech: normal. Father reports patient reported he did not feel weel today so he did not go to work. Father reports he let hi sleep and when he went to wake him after 3 today, found that he was unable to wake him. Father called EMS. EMS reports patient blood glucose was 38. Patient given 25 mg D10 prior to arrival and now more alert, awake. Historical: - Allergies: 15:30 gabapentin; jd3 - Home Meds: 15:30 Humulin U Sub-Q [Active]; Lantus Sub-Q [Active]; Folic Acid Oral [Active]; midodrine jd3 oral [Active]; Synthroid Oral [Active]; - PMHx: 15:30 Diabetes - IDDM; graves; jd3 - PSHx: 15:30 hip; jd3 - Immunization history:: Adult Immunizations up to date, Client reports having NOT received the Covid vaccine. - Social history:: Smoking status: Patient denies any tobacco usage or history of. ROS: 15:55 Constitutional: Negative for body aches, fever, poor PO intake. cp 15:55 Eyes: Negative for injury, pain, redness, and discharge. cp 15:55 Cardiovascular: Negative for chest pain. 15:55 Respiratory: Negative for cough, shortness of breath, wheezing. 15:55 Abdomen/GI: Positive for nausea, vomiting, and diarrhea, anorexia, Negative for abdominal pain, constipation. 15:55 : Negative for urinary symptoms, testicular pain 15:55 Neuro: Positive for numbness, of the right foot, left foot, right leg and left leg, Negative for headache, seizure activity, speech changes. 15:55 All other systems are negative. Exam: 16:00 Constitutional: The patient appears in no acute distress, alert, awake, cp non-diaphoretic, non-toxic, well developed, well nourished. 16:00 Head/Face: Normocephalic, atraumatic. cp 16:00 Eyes: Periorbital structures: appear normal, Pupils: equal, round, and reactive to light and accomodation, Extraocular movements: intact throughout, Conjunctiva: normal, no exudate, no injection, Sclera: no appreciated abnormality, Lids and lashes: appear normal, bilaterally. 16:00 ENT: External ear(s): are unremarkable, Ear canal(s): are normal, clear, TM's: dullness, bilaterally, Nose: is normal, Mouth: Lips: moist, Oral mucosa: pink and intact, moist, Posterior pharynx: Airway: no evidence of obstruction, patent. 16:00 Neck: ROM/movement: is normal, is supple, without pain, no range of motions limitations, no meningismus, no nuchal rigidity. 16:00 Chest/axilla: Inspection: normal, Palpation: is normal, no crepitus, no tenderness. 16:00 Cardiovascular: Rate: normal, Rhythm: regular, Edema: is not appreciated, JVD: is not appreciated. 16:00 Respiratory: the patient does not display signs of respiratory distress, Respirations: normal, no use of accessory muscles, no retractions, labored breathing, is not present, Breath sounds: are clear throughout, no decreased breath sounds, no stridor, no wheezing. 16:00 Abdomen/GI: Inspection: abdomen appears normal, Bowel sounds: active, all quadrants, Palpation: abdomen is soft and non-tender, in all quadrants. 16:00 Back: pain, is absent, ROM is normal. 16:00 Skin: cellulitis, is not appreciated, no rash present. 16:00 Neuro: Orientation: to person, place \T\ time. Mentation: able to follow commands, slow to respond, Motor: moves all fours, strength is normal, Sensation: light touch is decreased in the right foot and left foot and left lower leg and right lower leg. 16:02 ECG was reviewed by the Attending Physician. Vital Signs: 15:34 BP 142 / 96; Pulse 74; Resp 17 S; Temp 98.7(TE); Pulse Ox 100% on R/A; Weight 70.31 kg jd3 (R); Height 5 ft. 11 in. (180.34 cm) (R); Pain 0/10; 16:39 BP 121 / 88; Pulse 84; Resp 18 S; Pulse Ox 100% on R/A; jd3 17:50 BP 121 / 88; Pulse 81; Resp 17 S; Pulse Ox 100% on R/A; jd3 19:38 BP 157 / 101; Pulse 74; Resp 16; Pulse Ox 100% ; st1 21:00 BP 146 / 108; Pulse 95; Resp 18; Pulse Ox 100% ; st1 15:34 Body Mass Index 21.62 (70.31 kg, 180.34 cm) jd3 MDM: 15:43 Patient medically screened. cp 21:05 Data reviewed: vital signs, nurses notes, lab test result(s), EKG, radiologic studies, cp CT scan, plain films. 21:05 Test interpretation: by ED physician or midlevel provider: ECG, plain radiologic cp studies. 21:06 ED course: VSS. Patient reports he is feeling 100% better than when he felt upon cp arriving here to the emergency. Patient reports he is hungry and wants to eat. Discussed results of creatinine with initial results being 2.19 and a repeat value of 1.8 2:09 liters bolus. Patient reports he has had some renal disease in the past and review of the records show that with previous visit he had a creatinine of 2.86 and was diagnosed with acute renal failure. Patient reports he has not followed up with nephrology. Patient reports for his diabetes he takes insulin and no oral hypoglycemic meds. Will discharge to home for continued monitoring oral hydration and patient was instructed to follow-up with nephrology. 21:10 Counseling: I had a detailed discussion with the patient and/or guardian regarding: the cp historical points, exam findings, and any diagnostic results supporting the discharge/admit diagnosis, lab results, the need for outpatient follow up, an sr technical sales consultant, nephrology, to return to the emergency department if symptoms worsen or persist or if there are any questions or concerns that arise at home. 21:10 Response to treatment: the patient's symptoms have markedly improved after treatment, cp and as a result, I will discharge patient. 08/27 15:40 Order name: Basic Metabolic Panel; Complete Time: 16:38 08/27 17:09 Interpretation: Normal except: CL 112; GLUC 182; CRE 2.19; GFR 34. 08/27 15:40 Order name: CBC with Diff; Complete Time: 17:01 08/27 17:02 Interpretation: Normal except: RBC 4.07; HGB 12.2; HCT 37.3; CALVIN% 89.7; LYM% 6.9; MN% cp 2.7; LYMA 0.6. 08/27 15:40 Order name: LFT's; Complete Time: 16:38 08/27 17:47 Interpretation: Normal except: BILIT 0.1; ALB 3.2; GLOB 4.0; A/G 0.8. 08/27 15:40 Order name: Magnesium; Complete Time: 16:38 08/27 15:40 Order name: PT-INR; Complete Time: 16:38 08/27 15:40 Order name: Troponin HS; Complete Time: 16:38 08/27 17:48 Interpretation: Reviewed. 08/27 15:40 Order name: UDS; Complete Time: 16:38 08/27 15:40 Order name: Urine Microscopic Only; Complete Time: 16:38 08/27 20:40 Interpretation: Normal except: UWBC 5-10. 08/27 15:40 Order name: ETOH Level; Complete Time: 16:38 08/27 15:52 Order name: Glucose, Ancillary Testing; Complete Time: 16:04 [facility] 08/27 16:04 Interpretation: GLUC,ANCIL 176; Reviewed. 08/27 16:02 Order name: Urine Dipstick-Ancillary [facility] 08/27 16:22 Order name: Urine Culture EDAR 08/27 16:48 Order name: CBC Smear Scan; Complete Time: 17:01 [facility] 08/27 17:10 Order name: TSH; Complete Time: 19:22 08/27 17:47 Interpretation: Abnormal: TSH 7.300. 08/27 15:40 Order name: XRAY Chest (1 view); Complete Time: 17:01 08/27 17:02 Interpretation: Report reviewed. 08/27 15:40 Order name: EKG; Complete Time: 15:42 08/27 15:40 Order name: Cardiac monitoring; Complete Time: 15:41 08/27 15:40 Order name: EKG - Nurse/Tech; Complete Time: 16:03 08/27 15:40 Order name: IV Saline Lock; Complete Time: 15:49 08/27 15:40 Order name: Labs collected and sent; Complete Time: 15:49 08/27 15:40 Order name: O2 Per Protocol; Complete Time: 15:41 08/27 16:03 Order name: CT Head Brain wo Cont; Complete Time: 16:38 08/27 17:10 Order name: T3 Free; Complete Time: 19:22 08/27 17:47 Interpretation: Reviewed. 08/27 17:14 Order name: Glucose, Ancillary Testing; Complete Time: 17:46 EDMS 08/27 17:42 Order name: T4 Free; Complete Time: 19:22 EDMS 08/27 19:23 Order name: BMP; Complete Time: 20:15 08/27 19:48 Order name: Glucose, Ancillary Testing; Complete Time: 19:53 EDMS 08/27 15:40 Order name: O2 Sat Monitoring; Complete Time: 15:41 08/27 15:40 Order name: Urine Dipstick-Ancillary (obtain specimen); Complete Time: 16:03 08/27 15:40 Order name: Accucheck Blood Glucose; Complete Time: 16:03 08/27 20:43 Order name: PO challenge; Complete Time: 20:59 cp EC:02 Rate is 80 beats/min. Rhythm is regular. CA interval is normal. QRS interval is normal. cp QT interval is normal. T waves are Inverted in lead aVR. Interpreted by me. Reviewed by me. Administered Medications: 16:02 Drug: NS 0.9% 1000 ml Route: IV; Rate: 1 bolus; Site: right antecubital; jh6 17:21 Drug: NS 0.9% 1000 ml Route: IV; Rate: 1 bolus; Site: right antecubital; jd3 Point of Care Testing: Blood Glucose: 19:36 Blood Glucose: 144 mg/dL; st1 Ranges: Critical Glucose Levels:Adult <50 mg/dl or >400 mg/dl <40 mg/dl or >180 mg/dl Disposition: 08/28 07:04 Co-signature as Attending Physician, Juan A Esteves MD I agree with the assessment and rn plan of care. Attestation: The patient's history, exam findings, diagnostics, and a summary of any interventions or procedures was reviewed in detail with Rayray LEIVA. Disposition Summary: 08/27/21 21:10 Discharge Ordered Location: Home cp Problem: new cp Symptoms: have improved cp Condition: Stable cp Diagnosis - Type 1 diabetes mellitus with hypoglycemia cp - Chronic kidney disease, unspecified cp Followup: cp - With: Arash Rodrigues DO - When: 2 - 3 days - Reason: kidney disease Followup: cp - With: Private Physician - When: 1 - 2 days - Reason: hypoglycemia Discharge Instructions: - Discharge Summary Sheet cp - Hypoglycemia cp - Food Basics for Chronic Kidney Disease cp - Chronic Kidney Disease, Adult cp Forms: - Medication Reconciliation Form cp - Thank You Letter cp - Antibiotic Education cp - Prescription Opioid Use cp Signatures: Dispatcher [employer] EDAR Juan A Esteves MD MD rn Page, Corey, PA PA cp Efe Orlando RN RN jd3 Patricia Eduardo RN RN jh6 Corrections: (The following items were deleted from the chart) 08/27 16:14 15:52 Stone Protocol+CT.RAD.BRZ ordered. [facility] 08/28 19:17 08/27 15:50 Father reports patient reported he did not feel weel today so he did not go cp to work. Father reports he let hi sleep and when he went to wake him after 3 today, found that he was unable to wake him. Father called EMS. EMS reports patient blood glucose was in 30's. Patient given IV d50 prior to arrival and now more alert, awake. cp
--- NOTE | 2021-08-27 21:11 | ER ---
Nurse's Notes [facility] Name: Mark Cash Age: 41 yrs Sex: Male : 1980 Arrival Date: 08/27/2021 Time: 15:28 Bed 5 Private MD: Diagnosis: Type 1 diabetes mellitus with hypoglycemia;Chronic kidney disease, unspecified Presentation: 08/27 15:28 Chief complaint: EMS states: "we were called out for hypoglycemia episode. when we got jd3 there the pt was unconscious. initial blood sugar was 38. IV started to the right AC and 25 mg of D10 was given and his blood sugar by the time we got here was 276. pt is fully awake now and A\\T\\O X 4.". Coronavirus screen: At this time, the client does not indicate any symptoms associated with coronavirus-19. Ebola Screen: Patient negative for fever greater than or equal to 101.5 degrees Fahrenheit, and additional compatible Ebola Virus Disease symptoms. Initial Sepsis Screen: Does the patient meet any 2 criteria? No. Patient's initial sepsis screen is negative. Does the patient have a suspected source of infection? No. Patient's initial sepsis screen is negative. Risk Assessment: Do you want to hurt yourself or someone else? Patient reports no desire to harm self or others. Onset of symptoms was August 27, 2021. 15:28 Method Of Arrival: EMS: [facility] jd3 15:28 Acuity: MAILE 3 jd3 Historical: - Allergies: 15:30 gabapentin; jd3 - Home Meds: 15:30 Humulin U Sub-Q [Active]; Lantus Sub-Q [Active]; Folic Acid Oral [Active]; midodrine jd3 oral [Active]; Synthroid Oral [Active]; - PMHx: 15:30 Diabetes - IDDM; graves; jd3 - PSHx: 15:30 hip; jd3 - Immunization history:: Adult Immunizations up to date, Client reports having NOT received the Covid vaccine. - Social history:: Smoking status: Patient denies any tobacco usage or history of. Screenin:35 Abuse screen: Denies threats or abuse. Nutritional screening: No deficits noted. jd3 Tuberculosis screening: No symptoms or risk factors identified. Fall Risk Ambulatory Aid- None/Bed Rest/Nurse Assist (0 pts). Gait- Normal/Bed Rest/Wheelchair (0 pts) Mental Status- Oriented to own ability (0 pts). Total Cm Fall Scale indicates No Risk (0-24 pts). Assessment: 15:34 General: Appears in no apparent distress. comfortable, Behavior is calm, cooperative, jd3 appropriate for age, drowsy. Pain: Denies pain. Neuro: Level of Consciousness is awake, alert, obeys commands, Oriented to person, place, time, situation. Cardiovascular: Denies chest pain, Capillary refill < 3 seconds Patient's skin is warm and dry. Respiratory: Airway is patent Respiratory effort is even, unlabored, Respiratory pattern is regular, symmetrical, Denies cough, shortness of breath. GI: No signs and/or symptoms were reported involving the gastrointestinal system. : No signs and/or symptoms were reported regarding the genitourinary system. EENT: No signs and/or symptoms were reported regarding the EENT system. Derm: Skin is intact, Skin is dry, Skin is normal, Skin temperature is warm. Musculoskeletal: Circulation, motion, and sensation intact. Range of motion: intact in all extremities. 16:39 Reassessment: Patient appears in no apparent distress at this time. No changes from jd3 previously documented assessment. Patient and/or family updated on plan of care and expected duration. Pain level reassessed. Patient is alert, oriented x 3, equal unlabored respirations, skin warm/dry/pink. 17:51 Reassessment: Patient appears in no apparent distress at this time. No changes from jd3 previously documented assessment. Patient and/or family updated on plan of care and expected duration. Pain level reassessed. Patient is alert, oriented x 3, equal unlabored respirations, skin warm/dry/pink. 20:59 General: patient provided water for PO challenge . st1 Vital Signs: 15:34 BP 142 / 96; Pulse 74; Resp 17 S; Temp 98.7(TE); Pulse Ox 100% on R/A; Weight 70.31 kg jd3 (R); Height 5 ft. 11 in. (180.34 cm) (R); Pain 0/10; 16:39 BP 121 / 88; Pulse 84; Resp 18 S; Pulse Ox 100% on R/A; jd3 17:50 BP 121 / 88; Pulse 81; Resp 17 S; Pulse Ox 100% on R/A; jd3 19:38 BP 157 / 101; Pulse 74; Resp 16; Pulse Ox 100% ; st1 21:00 BP 146 / 108; Pulse 95; Resp 18; Pulse Ox 100% ; st1 15:34 Body Mass Index 21.62 (70.31 kg, 180.34 cm) jd3 ED Course: 15:28 Patient arrived in ED. jd3 15:28 Efe Orlando, JOSSELYN is Primary Nurse. jd3 15:30 Triage completed. jd3 15:34 Rayray Alcantara PA is PHCP. cp 15:34 Juan A Esteves MD is Attending Physician. cp 15:34 Arm band placed on. jd3 15:35 Patient has correct armband on for positive identification. Bed in low position. Call j light in reach. Side rails up X 1. Adult w/ patient. Pulse ox on. NIBP on. 15:50 Inserted saline lock: Maintain EMS IV. Dressing intact. Good blood return noted. Site jh6 clean \\T\\ dry. Gauge \\T\\ site: 20ga rt ac. 16:14 CT Head Brain wo Cont In Process Unspecified. EDMS 16:23 XRAY Chest (1 view) In Process Unspecified. EDMS 17:49 pts parents number. bd 19:39 No provider procedures requiring assistance completed. st1 21:08 Arash Rodrigues DO is Referral Physician. cp 21:45 IV discontinued, intact, bleeding controlled, No redness/swelling at site. Pressure st1 dressing applied. Administered Medications: 16:02 Drug: NS 0.9% 1000 ml Route: IV; Rate: 1 bolus; Site: right antecubital; jh6 17:21 Drug: NS 0.9% 1000 ml Route: IV; Rate: 1 bolus; Site: right antecubital; jd3 Point of Care Testing: Blood Glucose: 19:36 Blood Glucose: 144 mg/dL; st1 Ranges: Outcome: 21:10 Discharge ordered by . cp 21:44 Discharged to home via wheelchair, with family. st1 21:44 Condition: improved 21:44 Discharge instructions given to patient, Instructed on discharge instructions, follow up and referral plans. Demonstrated understanding of instructions, follow-up care. 21:45 Patient left the ED. st1 Signatures: Dispatcher [employer] EDMS Block Ebony bd Page, Rayray, PA PA cp Orlando, Efe, RN RN jd3 Patricia Eduardo RN RN jh6 Amanda Vasquez RN RN st1
[2021-08-27 21:52] VITALS: TEMP 98.7; O2SAT 100
[2021-08-27 21:58] VITALS: BP 146/108
--- NOTE | 2021-08-28 07:48 | EKG ---
Test Date: 2021-08-27 Test Time: 16:00:27 Team Supervisor: MINOO MEASUREMENT RESULTS: Intervals: Rate: 80 IL: 154 QRSD: 92 QT: 426 QTc: 491 [place]: P: 83 IL: 154 QRS: 79 T: 66 INTERPRETIVE STATEMENTS: Normal sinus rhythm Septal infarct, age undetermined Cannot rule out Inferior infarct, age undetermined Abnormal ECG Compared to ECG 12/13/2008 04:47:20 Myocardial infarct finding now present Sinus tachycardia no longer present Atrial abnormality no longer present Electronically Signed On 08-28-21 07:45:42 AIR [employer]UCKER by Min Higuera
== END 2021-08-27 21:45 | disposition home or self-care (01) ==
LOC: ER 15:26
DX: E10.649 Type 1 diabetes mellitus with hypoglycemia without coma (principal); E10.22 Type 1 diabetes mellitus with diabetic chronic kidney disease; N18.9 Chronic kidney disease, unspecified; Z79.4 Long term (current) use of insulin; Z88.8 Allergy status to other drugs, medicaments and biological substances
CPT/HCPCS: 93005; 87088; 85025; 87086; 80048 ×2; 36415; 80320; 83735; 85610; 82947 ×3; 80076; 84443; 84484; 84481; 84439; 80307; 70450; 71045; 99284; J7030 ×2; 81003; 81015